=== PATIENT | female | born 1980 | race Caucasian/White ===

== ENCOUNTER 2021-02-27 13:40 | Emergency (ER) | payer OTHER, MEDICAID ==
[~2021-02-27] VITALS: Ht 167.6 cm; Wt 74.8 kg
[2021-02-27] MEDS ORDERED: NEURONTIN 300M300 M2 PO (14:01)
[2021-02-27] MEDS ORDERED: ZPAK PO (14:49)
[2021-02-27] MEDS ORDERED: PROAIR HFA8.5 GM INH (14:49)
[2021-02-27] MEDS ORDERED: MEDROLDOSEPACK PO (14:50)
[2021-02-27 15:00] VITALS: BP 149/93
== END 2021-02-27 15:00 | disposition home or self-care (01) ==
LOC: M.ERS 13:40
DX: J18.9 Pneumonia, unspecified organism (principal); F17.210 Nicotine dependence, cigarettes, uncomplicated; Z79.899 Other long term (current) drug therapy